=== PATIENT | male | born 1970 | race Caucasian/White ===

== ENCOUNTER 2023-02-22 16:42 | Observation (INO) | payer SELFPAY ==
[2023-02-22 16:54] VITALS: BP 167/117; PULSE 70; RESP 19; TEMP 36.9; O2SAT 98; BMI 28.7
--- NOTE | 2023-02-22 16:57 | ED_ITS ---
Documented by User: Chris Mcneil DO 02/22/23 17:59 HPI - General Adult General: Chief complaint: Neuro Symptoms/Deficit Stated complaint: dizziness,communication issues Time Seen by Provider: 02/22/23 16:55 Source: patient Mode of arrival: ambulatory History of Present Illness: 52-year-old male who states he first began his symptoms last week 5 days ago. He was at work and he felt like he was having difficulty walking states he nearly passed out and he then got in his car after he seemed to recover and drove home his had to help him out of the car he states he did not have any difficulty driving he drove about 3 miles. He passed out again at home and was very tired for period of time he never came in he noticed difficulty with speech and some drooping in his face and difficulty with walking. This persisted up until today he states that around 2:00's afternoon he may have began to having more difficulty finding words than he did previously. He also felt like his walking had worsened some more. No chest pain. Onset (ago): day(s) (5) Location: head Severity: mild and moderate Pain Consistency: constant Relieving factors: none Exacerbating factors: none Associated symptoms: Reports weakness; Deny chest pain, confusion, cough, diaphoresis, decreased appetite, dyspnea, fevers/chills, headache(s), malaise, nausea, rash, palpitations, seizures, short of breath, syncope or vomiting Review of Systems Const: Denies: fever(s), chills, malaise or diaphoresis Card: Denies: chest pain, palpitations or syncope Resp: Denies: dyspnea GI: Denies: abdominal pain, nausea or vomiting : Denies: dysuria, urinary frequency or urinary urgency Musc: Denies: neck pain or back pain Skin/Breast: Denies: rash Neuro: Denies: headache(s) or confusion Physical Exam Const: GENERAL APPEARANCE: cooperative and comfortable ORIENTATION/CONSCIOUSNESS: Yes awake, Yes oriented to person, Yes oriented to place and Yes oriented to time HENMT: COMMON NORMALS: normocephalic, atraumatic and hearing grossly normal bilaterally HEAD & SCALP: normocephalic and atraumatic Resp: COMMON NORMALS: normal respiratory effort, No retractions, No use of accessory muscles and clear to auscultation bilaterally AUSCULTATION: clear to auscultation bilaterally Cardio: COMMON NORMALS: regular rate, regular rhythm and No murmurs present (Cardio) RATE: regular rate RHYTHM: regular rhythm GI: COMMON NORMALS: Soft to palpation and No hepatosplenomegaly present AUSCULTATION: Yes normoactive bowel sounds PALPATION: Yes Soft to palpation, No Tenderness to palpation present (GI), No Guarding due to palpation present (GI) and Yes No hepatosplenomegaly present Extremity: COMMON NORMALS: normal to inspection, capillary refill normal, no clubbing, cyanosis or edema, no calf tenderness and no pedal edema Neuro: SENSORIUM/ORIENTATION: Yes oriented to person, Yes oriented to place and Yes oriented to time OTHER: NIH score done as mixed findings. Patient has loss of sensation in his right lower leg but his left arm and left side of his face is ataxia both in the left leg and the left arm he does have some apparent word finding difficulties and presented with several common every day objects. He also has a little bit of slurring of speech. Skin: COMMON NORMALS: no rashes or lesions noted GENERAL SKIN EXAM: no rashes or lesions noted Course Vital Signs: Vital signs: Vital Signs Temperature 98.5 F 02/22/23 16:54 Pulse Rate 72 02/22/23 17:30 Respiratory Rate 16 02/22/23 17:30 Blood Pressure 172/118 02/22/23 17:30 Pulse Oximetry 97 02/22/23 17:30 Oxygen Delivery Me thod Room Air 02/22/23 17:30 MDM - General Adult Medical Decision Making IN taking his history patient had a stroke score of 3-4 that is now gone up by 1-2 points in the last 3-1/[address] Angela he recommends CTA head and neck and will come to see the patient. He did not feel that the patient was a tPA candidate at this time. Care signed out to Dr. Marques at change of shift. See final notes for diagnosis and disposition. Medical Records I reviewed the patient's medical records. Lab Data I reviewed the patient's lab results. 02/22/23 17:32 02/22/23 17:[address] 02/22/23 16:58 IMPRESSION: No acute intracranial abnormality. Head/Neck CTA 02/22/23 17:33 IMPRESSION: No large vessel stenosis or occlusion. IMPRESSION: No stenosis or occlusion. REFERENCES: NASCET CRITERIA. The degree of stenosis in the cervical segment of the internal carotid artery is based on NASCET criteria. Normal is no stenosis. Mild is less than 50% stenosis. Moderate is 50-69% stenosis. Severe is 70% to 99% stenosis. Total occlusion is no detectable patent lumen. Laboratory Results WBC 10.26 10^3/uL (3.29-11.43) 02/22/23 17:32 RBC 5.53 10^6/uL (3.85-5.65) 02/22/23 17:32 Hgb 15.70 g/dL (11.27-16.99) 02/22/23 17:32 Hct 50.0 % (37-53) 02/22/23 17:32 MCV 90.4 fl (82-101) 02/22/23 17:32 MCH 28.4 pg (27-33) 02/22/23 17:32 MCHC 31.4 g/dL (30-55) 02/22/23 17:32 RDW 13.0 % (12.1-15.1) 02/22/23 17:32 Plt Count 427 10^3/cmm (157-399) H 02/22/23 17:32 MPV 10.3 fL (7.4-10.4) 02/22/23 17:32 Neut % (Auto) 60.2 % 02/22/23 17:32 Lymph % (Auto) 27.9 % 02/22/23 17:32 Cocke % (Auto) 7.9 % 02/22/23 17:32 Eos % (Auto) 3.0 % 02/22/23 17:32 Baso % (Auto) 0.6 % 02/22/23 17:32 Neut # (Auto) 6.18 10^3/uL (1.8-7.7) 02/22/23 17:32 Lymph # (Auto) 2.9 10^3/uL (0.8-4.8) 02/22/23 17:32 Cocke # (Auto) 0.8 10^3/uL (0.2-0.9) 02/22/23 17:32 Eos # (Auto) 0.3 10^3/uL (0.0-0.8) 02/22/23 17:32 Baso # (Auto) 0.1 10^3/uL (0.0-0.1) 02/22/23 17:32 Nucleated RBC % (auto) 0 % 02/22/23 17:32 Nucleated RBCs # 0.0 /100WBC 02/22/23 17:32 Sodium 140 mmol/L (136-145) 02/22/23 17:32 Potassium 5.1 mmol/L (3.5-5.1) 02/22/23 17:32 Chloride 102 mmol/L (98-107) 02/22/23 17:32 Carbon Dioxide 29 mmol/L (22-29) 02/22/23 17:32 Anion Gap 14.1 (5-19) 02/22/23 17:32 BUN 10 mg/dL (6-20) 02/22/23 17:32 Creatinine 1.0 mg/dL (0.7-1.2) 02/22/23 17:32 GFR Calculation 78.2 mL/min (90-130) L 02/22/23 17:32 Glucose 80 mg/dL (65-115) 02/22/23 17:32 POC Glucose 74 mg/dL (70-110) 02/22/23 17:40 Calculated Osmolality 288 mOsm/kg (285-295) 02/22/23 17:32 Calcium 9.2 mg/dL (8.5-10.5) 02/22/23 17:32 Total Bilirubin 0.3 mg/dL (0.15-1.2) 02/22/23 17:32 AST 19 U/L (0-40) 02/22/23 17:32 ALT 20 U/L (0-41) 02/22/23 17:32 Alkaline Phosphatase 75 U/L (40-130) 02/22/23 17:32 Total Protein 7.5 g/dL (6.6-8.7) 02/22/23 17:32 Albumin 4.3 g/dL (3.5-5.2) 02/22/23 17:32 Globulin 3.2 g/dL (1.3-4.6) 02/22/23 17:32 Urine Color Yellow (Yellow) 02/22/23 19:04 Urine Appearance Clear (CLEAR) 02/22/23 19:04 Urine pH 7 (5-7) 02/22/23 19:04 Ur Specific Allen 1.010 (1.005-1.030) 02/22/23 19:04 Urine Protein Neg (Negative) 02/22/23 19:04 Urine Glucose (UA) Norm (Normal) 02/22/23 19:04 Urine Ketones Negative (Negative) 02/22/23 19:04 Urine Blood Neg (Negative) 02/22/23 19:04 Urine Nitrate Negative (Negative) 02/22/23 19:04 Urine Bilirubin Neg (Negative) 02/22/23 19:04 Urine Urobilinogen Norm mg/dL (Negative) 02/22/23 19:04 Ur Leukocyte Esterase Negative (Negative) 02/22/23 19:04 XR interpretation done by ED provider, pending radiology final review Discharge Plan Discharge Patient Disposition: Placed in Observation Clinical Impression: TIA (transient ischemic attack), Ataxic gait, Hypertension Condition: Stable Referrals: Eduin Villa MD [Primary Care Provider] - Coding Level of Care Code ED Coordinate Measuring Machine Technician for Chg Fwd NIH stroke score NIHSS Level Of Consciousness - 1a: 0 Level Of Consciousness Questions - 1b: Both Correct Level Of Consciousness Commands - 1c: Both Correct Best Gaze - 2: Normal Visual Martínez - 3: No Visual Loss Facial Palsy - 4: Normal Motor Arm Right - 5: No Drift Motor Arm Left - 5: No Drift Motor Leg Right - 6: No Drift Motor Leg Left - 6: No Drift Limb Ataxia - 7: Present In Two Limbs (Left arm left leg) Sensory - 8: Mild To Moderate Loss (Left side of the face, left arm right lower leg) Best Language - 9: Mild/Moderate Aphasia Dysarthia - 10: Mild/Moderate Dysarthia Extinction And Inattention - 11: 0 Score Total Score: 5 Documented by User: Yahir Marques DO 02/22/23 20:09 HPI - General Adult General: Chief complaint: Neuro Symptoms/Deficit Stated complaint: dizziness,communication issues Time Seen by Provider: 02/22/23 16:55 Course Vital Signs: Vital signs: Vital Signs Temperature 98.5 F 02/22/23 16:54 Pulse Rate 72 02/22/23 17:30 Respiratory Rate 16 02/22/23 17:30 Blood Pressure 172/118 02/22/23 17:30 Pulse Oximetry 97 02/22/23 17:30 Oxygen Delivery Me thod Room Air 02/22/23 17:30 MDM - General Adult Medical Decision Making IN taking his history patient had a stroke score of 3-4 that is now gone up by 1-2 points in the last 3-1/[address] Angela he recommends CTA head and neck and will come to see the patient. He did not feel that the patient was a tPA candidate at this time. Care signed out to Dr. Marques at change of shift. See final notes for diagnosis and disposition. Dr. Angela, and evaluated the patient and put a note in with his recommendations. CT angiogram was obtained which was negative. Dr. Rios was consulted who agreed for observation for further evaluation and treatment. Differential Diagnosis TIA, PA-C, ataxia, hypertension Lab Data 02/22/23 17:32 02/22/23 17:[address] 02/22/23 16:58 IMPRESSION: No acute intracranial abnormality. Head/Neck CTA 02/22/23 17:33 IMPRESSION: No large vessel stenosis or occlusion. IMPRESSION: No stenosis or occlusion. REFERENCES: NASCET CRITERIA. The degree of stenosis in the cervical segment of the internal carotid artery is based on NASCET criteria. Normal is no stenosis. Mild is less than 50% stenosis. Moderate is 50-69% stenosis. Severe is 70% to 99% stenosis. Total occlusion is no detectable patent lumen. Laboratory Results WBC 10.26 10^3/uL (3.29-11.43) 02/22/23 17:32 RBC 5.53 10^6/uL (3.85-5.65) 02/22/23 17:32 Hgb 15.70 g/dL (11.27-16.99) 02/22/23 17:32 Hct 50.0 % (37-53) 02/22/23 17:32 MCV 90.4 fl (82-101) 02/22/23 17:32 MCH 28.4 pg (27-33) 02/22/23 17:32 MCHC 31.4 g/dL (30-55) 02/22/23 17:32 RDW 13.0 % (12.1-15.1) 02/22/23 17:32 Plt Count 427 10^3/cmm (157-399) H 02/22/23 17:32 MPV 10.3 fL (7.4-10.4) 02/22/23 17:32 Neut % (Auto) 60.2 % 02/22/23 17:32 Lymph % (Auto) 27.9 % 02/22/23 17:32 Cocke % (Auto) 7.9 % 02/22/23 17:32 Eos % (Auto) 3.0 % 02/22/23 17:32 Baso % (Auto) 0.6 % 02/22/23 17:32 Neut # (Auto) 6.18 10^3/uL (1.8-7.7) 02/22/23 17:32 Lymph # (Auto) 2.9 10^3/uL (0.8-4.8) 02/22/23 17:32 Cocke # (Auto) 0.8 10^3/uL (0.2-0.9) 02/22/23 17:32 Eos # (Auto) 0.3 10^3/uL (0.0-0.8) 02/22/23 17:32 Baso # (Auto) 0.1 10^3/uL (0.0-0.1) 02/22/23 17:32 Nucleated RBC % (auto) 0 % 02/22/23 17:32 Nucleated RBCs # 0.0 /100WBC 02/22/23 17:32 Sodium 140 mmol/L (136-145) 02/22/23 17:32 Potassium 5.1 mmol/L (3.5-5.1) 02/22/23 17:32 Chloride 102 mmol/L (98-107) 02/22/23 17:32 Carbon Dioxide 29 mmol/L (22-29) 02/22/23 17:32 Anion Gap 14.1 (5-19) 02/22/23 17:32 BUN 10 mg/dL (6-20) 02/22/23 17:32 Creatinine 1.0 mg/dL (0.7-1.2) 02/22/23 17:32 GFR Calculation 78.2 mL/min (90-130) L 02/22/23 17:32 Glucose 80 mg/dL (65-115) 02/22/23 17:32 POC Glucose 74 mg/dL (70-110) 02/22/23 17:40 Calculated Osmolality 288 mOsm/kg (285-295) 02/22/23 17:32 Calcium 9.2 mg/dL (8.5-10.5) 02/22/23 17:32 Total Bilirubin 0.3 mg/dL (0.15-1.2) 02/22/23 17:32 AST 19 U/L (0-40) 02/22/23 17:32 ALT 20 U/L (0-41) 02/22/23 17:32 Alkaline Phosphatase 75 U/L (40-130) 02/22/23 17:32 Total Protein 7.5 g/dL (6.6-8.7) 02/22/23 17:32 Albumin 4.3 g/dL (3.5-5.2) 02/22/23 17:32 Globulin 3.2 g/dL (1.3-4.6) 02/22/23 17:32 Urine Color Yellow (Yellow) 02/22/23 19:04 Urine Appearance Clear (CLEAR) 02/22/23 19:04 Urine pH 7 (5-7) 02/22/23 19:04 Ur Specific Allen 1.010 (1.005-1.030) 02/22/23 19:04 Urine Protein Neg (Negative) 02/22/23 19:04 Urine Glucose (UA) Norm (Normal) 02/22/23 19:04 Urine Ketones Negative (Negative) 02/22/23 19:04 Urine Blood Neg (Negative) 02/22/23 19:04 Urine Nitrate Negative (Negative) 02/22/23 19:04 Urine Bilirubin Neg (Negative) 02/22/23 19:04 Urine Urobilinogen Norm mg/dL (Negative) 02/22/23 19:04 Ur Leukocyte Esterase Negative (Negative) 02/22/23 19:04 Discharge Plan Discharge Patient Disposition: Placed in Observation Clinical Impression: TIA (transient ischemic attack), Ataxic gait, Hypertension Condition: Stable Referrals: Eduin Villa MD [Primary Care Provider] - Coding Level of Care Code ED Coordinate Measuring Machine Technician for Zachary Burden NIH stroke score Score Total Score: 5
--- NOTE | 2023-02-22 16:58 | CTR_ITS ---
PROCEDURE INFORMATION: Exam: CT Head Without Contrast Exam date and time: 02/22/2023 5:03 PM Age: 52 years old Clinical indication: Dizziness and other: Weakness, confusion; Additional info: Weakness/dizziness TECHNIQUE: Imaging protocol: Computed tomography of the head without contrast. Radiation optimization: All CT scans at this facility use at least one of these dose optimization techniques: automated exposure control; mA and/or kV adjustment per patient size (includes targeted exams where dose is matched to clinical indication); or iterative reconstruction. REPORTING DATA: Count of CT and Cardiac NM exams in prior 12 months: This patient has received 0 known CTs and 0 known cardiac nuclear medicine studies in the 12 months prior to the current study. COMPARISON: No relevant prior studies available. RADIATION DOSE METRICS: Total DLP (mGy-cm): 1105 FINDINGS: Brain: Normal. No hemorrhage. Unremarkable white matter. No mass effect. Cerebral ventricles: No ventriculomegaly. Paranasal sinuses: Visualized sinuses are unremarkable. No fluid levels. Mastoid air cells: Visualized mastoid air cells are well aerated. Bones/joints: Unremarkable. No acute fracture. Soft tissues: Unremarkable. CT/CT head wo con* [id number] IMPRESSION: No acute intracranial abnormality.
[2023-02-22 17:26] LABS: Glucose Point of Care 74 mg/dL (70-110)
[2023-02-22 17:30] VITALS: BP 172/118; PULSE 72; RESP 16; O2SAT 97
--- NOTE | 2023-02-22 17:31 | ECG_ITS ---
[facility] Test Date: 2023-02-22 Pat Name: Slim Andino Department: Room: Gender: Male Dip Dyer: : 1970 Requested By: Chris Holly Order Number: [id number] Rodrigo MD: Jeff Harrison M.D. Measurements Intervals [place] Rate: 65 P: 0 AR: 0 QRS: 43 QRSD: 92 T: 65 QT: 396 QTc: 413 Interpretive Statements SUPRAVENTRICULAR RHYTHM No previous ECG available for comparison Electronically Signed On 02-22-2023 23:08:42 CDT by Jeff Harrison M.D. [email or web address]
--- NOTE | 2023-02-22 17:33 | CTR_ITS ---
PROCEDURE INFORMATION: Exam: CTA Head With Contrast, Arteriography Exam date and time: 02/22/2023 6:28 PM Age: 52 years old Clinical indication: Dizziness and giddiness and weakness; Additional info: CVA TECHNIQUE: Imaging protocol: Computed tomographic angiography of the head with contrast. Exam focused on the arteries. 3D rendering (Not supervised by radiologist): MIP and/or 3D reconstructed images were created by the technologist. Radiation optimization: All CT scans at this facility use at least one of these dose optimization techniques: automated exposure control; mA and/or kV adjustment per patient size (includes targeted exams where dose is matched to clinical indication); or iterative reconstruction. Contrast material: OMNI 350; Contrast volume: 100 ml; Contrast route: INTRAVENOUS (IV); REPORTING DATA: Count of CT and Cardiac NM exams in prior 12 months: This patient has received 0 known CTs and 0 known cardiac nuclear medicine studies in the 12 months prior to the current study. COMPARISON: CT head wo con* [id number] 02/22/2023 5:03 PM RADIATION DOSE METRICS: Total DLP (mGy-cm): 540 FINDINGS: ANTERIOR CIRCULATION: Right internal carotid artery: Intracranial segment is patent with no significant stenosis. No aneurysm. Right middle cerebral artery: No occlusion or significant stenosis. No aneurysm. Right anterior cerebral artery: No occlusion or significant stenosis. No aneurysm. Left internal carotid artery: Intracranial segment is patent with no significant stenosis. No aneurysm. Left middle cerebral artery: No occlusion or significant stenosis. No aneurysm. Left anterior cerebral artery: No occlusion or significant stenosis. No aneurysm. POSTERIOR CIRCULATION: Right vertebral artery: No occlusion or significant stenosis. No aneurysm. Left vertebral artery: No occlusion or significant stenosis. No aneurysm. Basilar artery: No occlusion or significant stenosis. No aneurysm. Right posterior cerebral artery: No occlusion or significant stenosis. No aneurysm. Left posterior cerebral artery: No occlusion or significant stenosis. No aneurysm. Brain: No definite mass, mass effect, or midline shift. Cerebral ventricles: No ventriculomegaly. Bones/joints: Unremarkable. No acute fracture. Soft tissues: Unremarkable. PROCEDURE INFORMATION: Exam: CTA Neck With Contrast Exam date and time: 02/22/2023 6:28 PM Age: 52 years old Clinical indication: Dizziness and giddiness and weakness; Additional info: CVA TECHNIQUE: Imaging protocol: Computed tomographic angiography of the neck with contrast. 3D rendering (Not supervised by radiologist): MIP and/or 3D reconstructed images were created by the technologist. Radiation optimization: All CT scans at this facility use at least one of these dose optimization techniques: automated exposure control; mA and/or kV adjustment per patient size (includes targeted exams where dose is matched to clinical indication); or iterative reconstruction. Contrast material: OMNI 350; Contrast volume: 100 ml; Contrast route: INTRAVENOUS (IV); REPORTING DATA: Count of CT and Cardiac NM exams in prior 12 months: This patient has received 0 known CTs and 0 known cardiac nuclear medicine studies in the 12 months prior to the current study. COMPARISON: CT head wo con* [id number] 02/22/2023 5:03 PM RADIATION DOSE METRICS: Total DLP (mGy-cm): 540 FINDINGS: Right common carotid artery: No stenosis. No dissection or occlusion. Right internal carotid artery: No stenosis of the extracranial segment. No dissection or occlusion. Right external carotid artery: No occlusion or stenosis of the origin. Left common carotid artery: No stenosis. No dissection or occlusion. Left internal carotid artery: No stenosis of the extracranial segment. No dissection or occlusion. Left external carotid artery: No occlusion or stenosis of the origin. Right vertebral artery: No stenosis. No dissection or occlusion. Left vertebral artery: No stenosis. No dissection or occlusion. Soft tissues: Normal. No significant soft tissue swelling. Bones/joints: No acute fracture. CT/CT angio headneck* [id number] IMPRESSION: No large vessel stenosis or occlusion. IMPRESSION: No stenosis or occlusion. REFERENCES: NASCET CRITERIA. The degree of stenosis in the cervical segment of the internal carotid artery is based on NASCET criteria. Normal is no stenosis. Mild is less than 50% stenosis. Moderate is 50-69% stenosis. Severe is 70% to 99% stenosis. Total occlusion is no detectable patent lumen.
[2023-02-22 17:42] LABS: Basophils # 0.1 10^3/uL (0.0-0.1); Basophils % 0.6 %; Eosinophils # 0.3 10^3/uL (0.0-0.8); Lymphocytes # 2.9 10^3/uL (0.8-4.8); Lymphocytes % 27.9 %; Mean Corpuscular HGB Conc 31.4 g/dL (30-55); Mean Corpuscular Hemoglobin 28.4 pg (27-33); Mean Corpuscular Volume 90.4 fl (82-101); Mean Platelet Volume 10.3 fL (7.4-10.4); Monocytes # 0.8 10^3/uL (0.2-0.9); Monocytes % 7.9 %; Neutrophils # 6.18 10^3/uL (1.8-7.7); Neutrophils % 60.2 %; Nucleated Red Blood Cells % 0 %; Platelet Count 427 10^3/cmm (157-399); Red Blood Count 5.53 10^6/uL (3.85-5.65); White Blood Count 10.26 10^3/uL (3.29-11.43)
[2023-02-22] MEDS: labetalol 5 mg/mL SDV 20mL 10 MG IVP (17:42)
[2023-02-22 17:50] LABS: Glucose Point of Care 74 mg/dL (70-110)
[2023-02-22 18:15] LABS: Alanine Aminotransferase 20 U/L (0-41); Albumin Level 4.3 g/dL (3.5-5.2); Alkaline Phosphatase 75 U/L (40-130); Aspartate Amino Transferase 19 U/L (0-40); Blood Urea Nitrogen 10 mg/dL (6-20); Calcium 9.2 mg/dL (8.5-10.5); Carbon Dioxide 29 mmol/L (22-29); Chloride 102 mmol/L (98-107); Globulin 3.2 g/dL (1.3-4.6); Glomerular Filtration Rate 78.2 mL/min (90-130); Glucose 80 mg/dL (65-115); Osmolality Calculated 288 mOsm/kg (285-295); Sodium 140 mmol/L (136-145); Total Bilirubin 0.3 mg/dL (0.15-1.2); Total Protein 7.5 g/dL (6.6-8.7)
--- NOTE | 2023-02-22 18:30 | PM.CONSULT ---
Providers/Reason For Consult Consulting Physician/Specialty*: Kane Angela MD neurology and epilepsy Reason for Consult*: Syncope and episodes of gait ataxia and left-sided numbness involving his face and arm Primary Care Provider: Wayne Villa History of Present Illness History of Present Illness Slim Andino is a 52 year old male with a history of paroxysmal atrial contractions the patient denied a history of hypertension but presented to the emergency room with blood pressure 172/118. According to the patient, 6 days prior to admission he was at work, last on February 17, 2023. 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 He stated that he was walking and suddenly a odd sensation came over him as though he might pass out. He stated that he was concerned it might be his heart so he sat down and initially he was not sweating but then he stated he was sweating profusely. Patient stated that he turned on a fan for about 2 minutes to cool off and then he walked to the office and experienced loss of consciousness for an undetermined period of time. Patient stated that he was alone and there were no witnesses. He stated that after regaining consciousness he was severely weak and ataxic but was able to drive himself home. When he arrived home he called to his and she assisted him from the vehicle into the house and the patient stated that he was very sleepy and tired and went to sleep for 5 to 6 hours. The next day the patient stated that he woke up and he still was not right and was off balance with continued difficulty processing. Then around 1 PM on 02/22/2023 he began having more trouble with balance associated with some word finding difficulty and sensation that he might pass out. As a result he presented to the [facility] emergency room and was transferred to ER bed 16. NIH score performed by ER physician was reported to be a very from a 3 to a 5. Noncontrast head CT and lab were obtained. Noncontrast head CT was reported to be negative. Metabolic lab results were pending at the time of this dictation. Upon neurological assessment patient is NIH score = 1 based upon patient complaining of left facial numbness in a V1 through V3 distribution and left arm numbness. Other was unrevealing. Patient speech was clear and no focal weakness or extinction on double sensory stimulation. Past medical history: Paroxysmal atrial contractions Nicotine dependence Drug allergies: None Current medications: None Habits: The patient smokes 1 pack/day. 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 of Systems General: Reports: 10 or more systems reviewed and unremarkable except in HPI and below Medications/Allergies Allergies Allergy/AdvReac Type Severity Reaction Status Date / Time No Known Allergies Allergy Verified 02/22/23 17:01 Vitals/I&O/Wt Last Vital Signs Temp 98.5 F 02/22/23 16:54 Pulse 72 02/22/23 17:30 Resp 16 02/22/23 17:30 BP 172/118 02/22/23 17:30 Pulse Ox 97 02/22/23 17:30 O2 Del Method Room Air 02/22/23 17:30 Weight last 48 hrs Weight 200 lb 6.4 oz Physical Exam Narrative: NIH score =1 secondary to complaints of numbness over the left side of his face in a V1 to V3 distribution and left upper extremity. Blood pressure 172/118 heart rate 65 O2 saturations 95% on room air The patient is alert and in no apparent distress. Head atraumatic. The patient did have a red area over the left forehead/hairline which she reports is chronic. Neck supple. Cranial nerves II through XII intact. Pupils 4 mm. Pupils equal round and reactive to light and accommodation. Extraocular movements intact. Visual carlos full via confrontation. There were no nystagmus. Motor testing 5/5 bilaterally. There was no drift. Deep tendon reflexes 2+ bilaterally. Plantar responses flexor bilaterally. There was no clonus. Sensory examination was intact to gross modalities. Patient reported decrease sensation over the left face in a V1 to V3 distribution and left upper extremity. There was no extinction on double sensory stimulation. Throat clear. Lungs clear. Heart regular rhythm and rate. Extremities were negative for clubbing cyanosis or edema. Pulses 2-3+ in the upper and lower extremities. Data 02/22/23 17:32 02/22/23 17:32 A&P Assessment and plan (1) Syncope: Impression: 1. Syncopal episode while ambulating on 02/17/2023 preceded by the patient becoming very hot and sweaty 2. Ataxia, processing difficulty and body numbness since 02/17/2023 exacerbated on 02/22/2023 3. History of paroxysmal atrial contractions 4. Malignant elevation of blood pressure (172/118 in the emergency department room #16) 5. Cigarette use (nicotine dependence) Plan: 1. Recommend obtaining CT angiogram of the head and neck to assess for carotid or vertebral artery stenosis 2. Hypercoagulable lab to assess for a hypercoagulable state 3. Recommend obtaining 2D echocardiogram to rule out embolic source for the patient's symptoms 4. Recommend cardiac telemetry monitoring during his hospitalization to assess for cardiac arrhythmias 5. Agree with current work-up and treatment plan 6. Start aspirin 325 mg p.o. every morning with food first dose now 7. Recommend starting lipid-lowering agent such as Lipitor at 40 to 80 mg p.o. daily 8. Note: Since the patient's symptoms began on 02/17/2023 and has continued but exacerbated on 02/22/2023, and the patient's NIH score = 1, the patient was not a candidate for tPA or other thrombolytics and no tPA was administered 9. Address the patient's elevated blood pressure/hypertension 10. Recommend cardiac evaluation since patient has history of paroxysmal atrial contractions and has not been evaluated by teacher lip reading in years. (2) TIA (transient ischemic attack): (3) Ataxic gait: Consult Attestations Medical Necessity Statement: Patient evaluated by neurology for reported syncopal episode on 02/17/2023 and continued near syncope and ataxia since 02/17/2023 and numbness and speech difficulty. Coding Level of Care Code 36635 Diagnoses Syncope R55 TIA (transient ischemic attack) G45.9 Ataxic gait R26.0
[2023-02-22] MEDS: iohexol 350 mg/mL 500 mL Btl (per mL) IV (18:39)
[2023-02-22 18:40] LABS: Anion Gap 14.1 (5-19); Potassium 5.1 mmol/L (3.5-5.1)
[2023-02-22] MEDS: hyDRALAzine 20 mg/mL INJ 1 mL 10 MG IVP (19:05)
[2023-02-22 19:13] LABS: Add Urine Microscopic? NO; Charge for UA Resulting for Rev
[2023-02-22 19:34] LABS: Bilirubin Urine Neg (Negative); Blood Urine Neg (Negative); Glucose Urine UA Norm (Normal); Ketones Urine Negative (Negative); Leukocyte Esterase Urine Negative (Negative); Nitrate Urine Negative (Negative); Protein Urine Neg (Negative); Urine Appearance Clear (CLEAR); Urine Color Yellow (Yellow); Urobilinogen Urine Norm (Negative); pH Urine 7 (5-7)
[2023-02-22 20:49] VITALS: BP 152/94; PULSE 90; RESP 16; O2SAT 95
[2023-02-22 21:05] VITALS: BP 152/94; PULSE 90; RESP 16; TEMP 36.9; O2SAT 95
[2023-02-22 21:22] VITALS: BP 173/79; PULSE 86; RESP 18; TEMP 36.4; O2SAT 97
[2023-02-22 22:19] VITALS: BP 173/79; PULSE 86; RESP 18; TEMP 36.4; O2SAT 97
--- NOTE | 2023-02-22 22:23 | PM.HP ---
Providers/Chief Complaint Admitting Physician: Malissa Rios MD Primary Care Provider: Wayne Villa Chief Complaint: dizziness History of Present Illness Slim Andino is a 52 year old male with no significant past medical history presented with complaint of feeling abnormal on the left side of his body. He reported feeling not normal 1 week ago when he was at work and suddenly had to sit, also had a dragging feel on the left side of his body. He further added that he has not been feeling his usual for last 1 week. Also had difficulty finding words to speak. He denies any history of headache dizziness chest pain shortness of breath sick contacts urinary or bowel complaints. Last PCP visit was 2 years ago. He was doing fine until 1 week ago. In ER he was found to have a systolic blood pressure in 150s. Review of Systems Narrative: As per HPI Medications/Allergies Allergies Allergy/AdvReac Type Severity Reaction Status Date / Time No Known Allergies Allergy Verified 02/22/23 17:01 Vitals/I&O/Wt Last Vital Signs Temp 97.5 F L 02/22/23 21:22 Pulse 86 02/22/23 21:22 Resp 18 02/22/23 21:22 BP 173/79 02/22/23 21:22 Pulse Ox 97 02/22/23 21:22 O2 Del Method Room Air 02/22/23 17:30 Weight last 48 hrs Weight 90.9 kg Physical Exam Narrative: He is alert awake oriented x3, normal speech Chest clear to auscultation bilaterally Cardiovascular normal heart sounds Abdomen NAD Extremities no edema noted Neurological normal speech but sometimes difficult articulation, no motor or sensory deficits seen. Left nasolabial fold mildly prominent Data 02/22/23 17:32 02/22/23 17:32 CT Head: Radiologist's impression: No acute findings Other CT: Radiologist's impression: CTA head and neck No large vessel stenosis present A&P Assessment and plan (1) TIA (transient ischemic attack): (2) Hypertension: Qualifiers: Hypertension type: unspecified Qualified Code(s): I10 - Essential (primary) hypertension Plan 52-year-old male with no significant medical history active smoker presented with complaint of feeling abnormal on the left side of his body and difficulty to articulate speech since 1 week likely secondary to TIA. Neurology consult appreciated. He is not a candidate for tPA at this time. Will continue aspirin 325 mg daily Add atorvastatin 40 mg daily, check lipid profile in a.m. Check repeat EKG and 2D echo. Monitor blood pressure for now. Target BP is 140/90 PT eval in a.m. IV Pepcid 20 mg every 12 hours for stress ulcer prophylaxis Subcutaneous Lovenox 30 mg daily for DVT prophylaxis He is full code for now Attestations Medical Necessity Statement*: He is here for observation for 24 hours for possible TIA and further cardiac work-up to rule out thrombotic stroke Time Spent in Patient Care: 30 minutes Coding Level of Care Code Acute Code for Chg Fwd Diagnoses TIA (transient ischemic attack) G45.9 Hypertension I10 Hypertension type: unspecified Time Spent (min) 30
[2023-02-22] MEDS: famotidine 20 mg/2 mL INJ IVP (23:13)
[2023-02-22] MEDS: enoxaparin 30 mg/0.3 mL Syringe SUBCUT (23:24)
[2023-02-22] MEDS: sodium chloride 0.9% 1,000 ML 75 ML IV (23:24)
[2023-02-23] VITALS: BP 145/79; PULSE 72; RESP 18; TEMP 36.8; O2SAT 97
[2023-02-23 01:53] LABS: Adenovirus Not Detected (NOT DETECT); Chlamydia Pneumoniae Not Detected (NOT DETECT); Coronavirus 229E,HKU1,NL63,OC4 Not Detected (NOT DETECT); Human Metapneumovirus Not Detected (NOT DETECT); Human Rhinovirus/Enterovirus Not Detected (NOT DETECT); Influenza A Not Detected (NOT DETECT); Influenza A H1 Not Detected (NOT DETECT); Influenza A H1-2009 Not Detected (NOT DETECT); Influenza A H3 Not Detected (NOT DETECT); Influenza B Not Detected (NOT DETECT); Mycoplasma Pneumoniae Not Detected (NOT DETECT); Parainfluenza Virus Type 1 Not Detected (NOT DETECT); Parainfluenza Virus Type 2 Not Detected (NOT DETECT); Parainfluenza Virus Type 3 Not Detected (NOT DETECT); Parainfluenza Virus Type 4 Not Detected (NOT DETECT); Respiratory Syncytial Virus A Not Detected (NOT DETECT); Respiratory Syncytial Virus B Not Detected (NOT DETECT); SARS-COV-2 Not Detected (NOT DETECT)
[2023-02-23 04:52] VITALS: BP 140/80; PULSE 75; RESP 18; TEMP 37; O2SAT 97
--- NOTE | 2023-02-23 04:52 | PC.NURSE ---
pt went to bathroom and flushed before i could get in there to chart it
[2023-02-23 04:59] LABS: Basophils # 0.1 10^3/uL (0.0-0.1); Basophils % 0.5 %; Eosinophils # 0.4 10^3/uL (0.0-0.8); Eosinophils % 3.7 %; Lymphocytes # 3.6 10^3/uL (0.8-4.8); Lymphocytes % 32.6 %; Mean Corpuscular HGB Conc 32.1 g/dL (30-55); Mean Corpuscular Hemoglobin 29.1 pg (27-33); Mean Corpuscular Volume 90.7 fl (82-101); Mean Platelet Volume 10.3 fL (7.4-10.4); Monocytes # 0.8 10^3/uL (0.2-0.9); Monocytes % 7.3 %; Neutrophils # 6.07 10^3/uL (1.8-7.7); Neutrophils % 55.5 %; Nucleated Red Blood Cells % 0 %; Platelet Count 395 10^3/cmm (157-399); Red Blood Count 4.74 10^6/uL (3.85-5.65); Red Cell Distribution Width 13.1 % (12.1-15.1); White Blood Count 10.93 10^3/uL (3.29-11.43)
[2023-02-23 05:17] LABS: Chol HDL Ratio 6.41 mg/dL (1.0-5.00); Cholesterol 205 mg/dL (0-200); HDL Cholesterol 32 mg/dL (60-100); LDL Cholesterol Calculated 120 mg/dL (50-129); LDL HDL Ratio 3.75 RATIO (0.00-3.22); Triglycerides 264 mg/dL (0-150)
[2023-02-23 05:24] LABS: Alanine Aminotransferase 18 U/L (0-41); Albumin Level 3.7 g/dL (3.5-5.2); Alkaline Phosphatase 66 U/L (40-130); Anion Gap 14.5 (5-19); Aspartate Amino Transferase 16 U/L (0-40); Blood Urea Nitrogen 14 mg/dL (6-20); Calcium 8.4 mg/dL (8.5-10.5); Carbon Dioxide 25 mmol/L (22-29); Chloride 107 mmol/L (98-107); Globulin 2.8 g/dL (1.3-4.6); Glucose 93 mg/dL (65-115); Magnesium 2.5 mg/dL (1.7-2.3); Osmolality Calculated 294 mOsm/kg (285-295); Phosphorus 3.9 mg/dL (2.5-4.5); Potassium 4.5 mmol/L (3.5-5.1); Sodium 142 mmol/L (136-145); Total Bilirubin 0.2 mg/dL (0.15-1.2); Total Protein 6.5 g/dL (6.6-8.7)
--- NOTE | 2023-02-23 07:10 | USCV_ITS ---
Sina Slim Age: 52 Gender: M : 1970 Exam Date: 02/23/2023 09:18 Ordering Phys: Ronda Jackson MD Technologist: Exam Location: [facility] [place] Indication: chest pain BP: 140 / 90 HR: 68 Rhythm: Sinus Technical Quality: Adequate MEASUREMENTS (Male / Female) Normal Values 2D ECHO LV Diastolic Diameter PLAX 4.1 cm 4.2 - 5.9 / 3.9 - 5.3 cm LV Systolic Diameter PLAX 2.7 cm IVS Diastolic Thickness 1.2 cm 0.6 - 1.0 / 0.6 - 0.9 cm IVS Systolic Thickness 1.5 cm LVPW Diastolic Thickness 1.1 cm 0.6 - 1.0 / 0.6 - 0.9 cm LVPW Systolic Thickness 1.7 cm LVOT Diameter 2.1 cm LV Ejection Fraction 2D Teich 62.5 % LV Ejection Fraction MOD 2C 69.6 % LV Ejection Fraction 2C AL 68.3 % LA Diameter 3.8 cm IVC Diameter 1.3 cm M-MODE Aortic Annulus Diameter 4.0 cm LA Ao Ratio MM 1.1 MV E Point Septal Separation 0.9 cm DOPPLER AV Peak Velocity 134.0 cm/s LVOT Peak Velocity 100.0 cm/s AV Area Cont Eq vti 3.0 cm squared AV Area Cont Eq pk 2.7 cm squared MV Area PHT 5.0 cm squared Mitral E to A Ratio 1.2 MV E' Velocity 47.0 cm/s Mitral E to MV E' Ratio 7.6 Mitral E to LV E' Lateral Ratio 8.4 Mitral E to LV E' Septal Ratio 7.0 TR Peak Velocity 123.0 cm/s TR Peak Gradient 6.1 mmHg TV Peak E Velocity 105.0 cm/s Right Atrial Pressure 3.0 mmHg Pulmonary Artery Systolic Pressu 9.1 mmHg RV Acceleration Time 0.1 s FINDINGS Left Ventricle Normal left ventricular size and systolic function, EF 73 %. No regional wall motion abnormalities. Mild left ventricular hypertrophy. Segmental wall motion analysis somewhat difficult because of the poor ultrasonic window Right Ventricle The right ventricle is normal in size and function. Right Atrium The right atrium is normal in size. Left Atrium The left atrium is normal in size. Mitral Valve No gross abnormalities noted Aortic Valve No gross abnormalities noted Tricuspid Valve No gross abnormalities noted.trace tricuspid valve regurgitation. Estimated pulmonary artery peak systolic pressure 9 mmHg Pulmonic Valve Pulmonic valve not well visualized. Pericardium Normal pericardium without effusion. Aorta Normal aortic annulus size. IVC Normal inferior vena cava. CONCLUSIONS Normal left ventricular size and systolic function, EF 73 %. No regional wall motion abnormalities. Mild left ventricular hypertrophy. Segmental wall motion analysis somewhat difficult because of the poor ultrasonic window. Possibly normal cardiac chamber sizes. No gross abnormalities noted.trace tricuspid valve regurgitation. Estimated pulmonary artery peak systolic pressure 9 mmHg. There is no pericardial effusion. There are no intracardiac masses. Technically difficult study because of the poor ultrasonic window. No similar previous studies are available for comparison Dr Gale Ulloa MD FACC (Electronically Signed) Final Date: 24 February 2023 06:26 S
[2023-02-23 08:00] VITALS: BP 146/75; PULSE 74; RESP 18; TEMP 36.7; O2SAT 95
--- NOTE | 2023-02-23 08:24 | PM.PN ---
Subjective Subjective: History of Present Illness Slim Andino is a 52 year old male with a history of paroxysmal atrial contractions the patient denied a history of hypertension but presented to the emergency room with blood pressure 172/118.? According to the patient, 6 days prior to admission he was at work, last on February 17, 2023.? 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 He stated that he was walking and suddenly a odd sensation came over him as though he might pass out.? He stated that he was concerned it might be his heart so he sat down and initially he was not sweating but then he stated he was sweating profusely.? Patient stated that he turned on a fan for about 2 minutes to cool off and then he walked to the office and experienced loss of consciousness for an undetermined period of time.? Patient stated that he was alone and there were no witnesses.? He stated that after regaining consciousness he was severely weak and ataxic but was able to drive himself home.? When he arrived home he called to his and she assisted him from the vehicle into the house and the patient stated that he was very sleepy and tired and went to sleep for 5 to 6 hours.? The next day the patient stated that he woke up and he still was not right and was off balance with continued difficulty processing.? Then around 1 PM on 02/22/2023 he began having more trouble with balance associated with some word finding difficulty and sensation that he might pass out.? As a result he presented to the [facility] emergency room and was transferred to ER bed 16. NIH score performed by ER physician was reported to be a very from a 3 to a 5.? Noncontrast head CT and lab were obtained.? Noncontrast head CT was reported to be negative.? Metabolic lab results were pending at the time of this dictation.? Upon neurological assessment patient is NIH score = 1 based upon patient complaining of left facial numbness in a V1 through V3 distribution and left arm numbness.? Other was unrevealing.? Patient speech was clear and no focal weakness or extinction on double sensory stimulation. Past medical history: Paroxysmal atrial contractions Nicotine dependence Drug allergies: None Current medications: None Habits: The patient smokes 1 pack/day.? 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 Reports: 10 or mor e systems reviewed and unremarkable except in HPI and below Vitals/I&O/Wt Last Vital Signs Temp 98.6 F 02/23/23 04:52 Pulse 75 02/23/23 04:52 Resp 18 02/23/23 04:52 BP 140/80 02/23/23 04:52 Pulse Ox 97 02/23/23 04:52 O2 Del Method Room Air 02/23/23 00:00 02/22/23 02/23/23 02/23/23 22:59 06:59 14:59 Intake Total 120 / 120 611.25 / 611.25 Balance 120 / 120 611.25 / 611.25 Weight last 48 hrs Weight 200 lb 6.4 oz Physical Exam Const: OTHER: NIH score =0 The patient is alert and in no apparent distress.? Head atraumatic.? The patient did have a red area over the left forehead/hairline which she reports is chronic.? Neck supple.? Cranial nerves II through XII intact.? Pupils 4 mm.? Pupils equal round and reactive to light and accommodation.? Extraocular movements intact.? Visual carlos full via confrontation.? There were no nystagmus.? Motor testing 5/5 bilaterally.? There was no drift.? Deep tendon reflexes 2+ bilaterally.? Plantar responses flexor bilaterally.? There was no clonus.? Sensory examination was intact to gross modalities.? Patient reported decrease sensation over the left face in a V1 to V3 distribution and left upper extremity.? There was no extinction on double sensory stimulation.? Throat clear.? Lungs clear.? Heart regular rhythm and rate.? Extremities were negative for clubbing cyanosis or edema.? Pulses 2-3+ in the upper and lower extremities. Data 02/23/23 04:28 02/23/23 04:28 A&P Assessment and plan (1) Syncope: Impression: 1.? Syncopal episode while ambulating on 02/17/2023 preceded by the patient becoming very hot and sweaty 2.? Ataxia, processing difficulty and body numbness since 02/17/2023 exacerbated on 02/22/2023 3.? History of paroxysmal atrial contractions 4.? Malignant elevation of blood pressure (172/118 in the emergency department room #16) 5.? Cigarette use (nicotine dependence) Plan: 1.? Follow-up hypercoagulable lab to assess for a hypercoagulable state 3.? Recommend obtaining 2D echocardiogram to rule out embolic source for the patient's symptoms 4.? Continue aspirin 325 mg p.o. every morning with food 5.? Continue lipid-lowering agent such as Lipitor at 40 to 80 mg p.o. daily 6. Have patient follow-up with family physician for hypertension and instruct patient to get a home blood pressure monitor to monitor his blood pressure 2-3 times a day and report to his family physician for any blood pressure elevation (i.e. systolic blood pressure greater than 140 or diastolic blood pressure greater than 90) 7.? Recommend cardiac evaluation since patient has history of paroxysmal atrial contractions and has not been evaluated by speedboat driver in years and patient reported syncopal episode preceded by profuse sweating. 8. Continue syncope precautions per state law 9. Please schedule patient for follow-up in the neurology clinic in 2 weeks 10. Please schedule patient for outpatient sleep deprived surface EEG recording for 61 minutes to assess for seizures 11. Patient stable from neurological standpoint for discharge planning (2) Ataxic gait: (3) TIA (transient ischemic attack): Attestations Medical Necessity Statement*: Patient evaluated by neurology for ataxia and left-sided numbness and syncope Coding Level of Care Code 65391 Diagnoses Syncope R55 Ataxic gait R26.0 TIA (transient ischemic attack) G45.9
[2023-02-23] MEDS: aspirin 325 mg EC Tablet PO (08:29)
[2023-02-23] MEDS: amlodipine 5 mg Tablet PO (08:30)
[2023-02-23] MEDS: lisinopril 10 mg Tablet PO (08:30)
--- NOTE | 2023-02-23 09:20 | PM.DCS ---
Discharge Providers Date of Admission: 02/22/23 20:09 Date of Discharge: February 23, 2023 Attending Provider at Admission: Malissa Rios MD Attending Provider at Discharge: Malissa Rios MD Primary Care Provider: Wayne Villa Diagnoses at Discharge Discharge Diagnosis (1) Syncope: Status: Acute (2) Ataxic gait: Status: Acute (3) TIA (transient ischemic attack): Status: Acute Reason for Visit Reason for Visit: dizziness Hospital Course Hospital Course This excerpt is taken from the neurology consultation Slim Andino is a 52 year old male with a history of paroxysmal atrial contractions the patient denied a history of hypertension but presented to the emergency room with blood pressure 172/118.? According to the patient, 6 days prior to admission he was at work, last on February 17, 2023.? 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 He stated that he was walking and suddenly a odd sensation came over him as though he might pass out.? He stated that he was concerned it might be his heart so he sat down and initially he was not sweating but then he stated he was sweating profusely.? Patient stated that he turned on a fan for about 2 minutes to cool off and then he walked to the office and experienced loss of consciousness for an undetermined period of time.? Patient stated that he was alone and there were no witnesses.? He stated that after regaining consciousness he was severely weak and ataxic but was able to drive himself home.? When he arrived home he called to his and she assisted him from the vehicle into the house and the patient stated that he was very sleepy and tired and went to sleep for 5 to 6 hours.? The next day the patient stated that he woke up and he still was not right and was off balance with continued difficulty processing.? Then around 1 PM on 02/22/2023 he began having more trouble with balance associated with some word finding difficulty and sensation that he might pass out.? As a result he presented to the [facility] emergency room and was transferred to ER bed 16. NIH score performed by ER physician was reported to be a very from a 3 to a 5.? Noncontrast head CT and lab were obtained.? Noncontrast head CT was reported to be negative.? Metabolic lab results were pending at the time of this dictation.? Upon neurological assessment patient is NIH score = 1 Patient was not a tPA candidate, his symptoms improved with control of blood pressure, stroke work-up was unremarkable, patient is an active smoker, he has not taken any antihypertensive regimen at home, blood pressure at the time of discharge is 146/75 mmHg, added lisinopril and amlodipine, I have asked patient to maintain a blood pressure log and follow-up with PCP he has an appointment on Tuesday His rhythm remained sinus no signs of A-fib His diagnosis will be TIA related to hypertension If patient gets recurrent episode of episodic hypertension with profuse sweating he will need catecholamine surge investigation to rule out pheochromocytoma and carcinoid syndrome Physical Exam Narrative: Patient is awake and alert GCS 15 Nonfocal neuro exam Blood pressure 146/95 mmHg S1, S2 Pleasant and cooperative Abdomen soft Discharge Data Studies Completed and Pending Completed Studies During Hospitalization Category Date Time Status CT head wo con* [id number] Stat Cat Scan 02/22/23 16:58 Completed CTA head neck [CT angio headneck* [id number]] Stat Cat Scan 02/22/23 17:33 Completed Pending at discharge Category Date Time Status CA echo doppler complete Routine Exams 02/22/23 22:43 Stop Req CV. echo complete* [id number] Routine Ultrasound 02/23/23 07:10 Ordered Radiology Impressions Head CT 02/22/23 16:58 IMPRESSION: No acute intracranial abnormality. Head/Neck CTA 02/22/23 17:33 IMPRESSION: No large vessel stenosis or occlusion. IMPRESSION: No stenosis or occlusion. REFERENCES: NASCET CRITERIA. The degree of stenosis in the cervical segment of the internal carotid artery is based on NASCET criteria. Normal is no stenosis. Mild is less than 50% stenosis. Moderate is 50-69% stenosis. Severe is 70% to 99% stenosis. Total occlusion is no detectable patent lumen. Laboratory Results WBC 10.93 10^3/uL (3.29-11.43) 02/23/23 04:28 RBC 4.74 10^6/uL (3.85-5.65) 02/23/23 04:28 Hgb 13.80 g/dL (11.27-16.99) 02/23/23 04:28 Hct 43.0 % (37-53) 02/23/23 04:28 MCV 90.7 fl (82-101) 02/23/23 04:28 MCH 29.1 pg (27-33) 02/23/23 04:28 MCHC 32.1 g/dL (30-55) 02/23/23 04:28 RDW 13.1 % (12.1-15.1) 02/23/23 04:28 Plt Count 395 10^3/cmm (157-399) 02/23/23 04:28 MPV 10.3 fL (7.4-10.4) 02/23/23 04:28 Neut % (Auto) 55.5 % 02/23/23 04:28 Lymph % (Auto) 32.6 % 02/23/23 04:28 [place] % (Auto) 7.3 % 02/23/23 04:28 Eos % (Auto) 3.7 % 02/23/23 04:28 Baso % (Auto) 0.5 % 02/23/23 04:28 Neut # (Auto) 6.07 10^3/uL (1.8-7.7) 02/23/23 04:28 Lymph # (Auto) 3.6 10^3/uL (0.8-4.8) 02/23/23 04:28 [place] # (Auto) 0.8 10^3/uL (0.2-0.9) 02/23/23 04:28 Eos # (Auto) 0.4 10^3/uL (0.0-0.8) 02/23/23 04:28 Baso # (Auto) 0.1 10^3/uL (0.0-0.1) 02/23/23 04:28 Nucleated RBC % (auto) 0 % 02/23/23 04:28 Nucleated RBCs # 0.0 /100WBC 02/23/23 04:28 Sodium 142 mmol/L (136-145) 02/23/23 04:28 Potassium 4.5 mmol/L (3.5-5.1) 02/23/23 04:28 Chloride 107 mmol/L (98-107) 02/23/23 04:28 Carbon Dioxide 25 mmol/L (22-29) 02/23/23 04:28 Anion Gap 14.5 (5-19) 02/23/23 04:28 BUN 14 mg/dL (6-20) 02/23/23 04:28 Creatinine 1.1 mg/dL (0.7-1.2) 02/23/23 04:28 GFR Calculation 70.0 mL/min (90-130) L 02/23/23 04:28 Glucose 93 mg/dL (65-115) 02/23/23 04:28 POC Glucose 74 mg/dL (70-110) 02/22/23 17:40 Calculated Osmolality 294 mOsm/kg (285-295) 02/23/23 04:28 Calcium 8.4 mg/dL (8.5-10.5) L 02/23/23 04:28 Phosphorus 3.9 mg/dL (2.5-4.5) 02/23/23 04:28 Magnesium 2.5 mg/dL (1.7-2.3) H 02/23/23 04:28 Total Bilirubin 0.2 mg/dL (0.15-1.2) 02/23/23 04:28 AST 16 U/L (0-40) 02/23/23 04:28 ALT 18 U/L (0-41) 02/23/23 04:28 Alkaline Phosphatase 66 U/L (40-130) 02/23/23 04:28 Total Protein 6.5 g/dL (6.6-8.7) L 02/23/23 04:28 Albumin 3.7 g/dL (3.5-5.2) 02/23/23 04:28 Globulin 2.8 g/dL (1.3-4.6) 02/23/23 04:28 Triglycerides 264 mg/dL (0-150) H 02/23/23 04:28 Cholesterol 205 mg/dL (0-200) H 02/23/23 04:28 LDL Cholesterol, Calc 120 mg/dL (50-129) 02/23/23 04:28 HDL Cholesterol 32 mg/dL (60-100) L 02/23/23 04:28 LDL/HDL Ratio 3.75 RATIO (0.00-3.22) H 02/23/23 04:28 Cholesterol/HDL Ratio 6.41 mg/dL (1.0-5.00) H 02/23/23 04:28 Urine Color Yellow (Yellow) 02/22/23 19:04 Urine Appearance Clear (CLEAR) 02/22/23 19:04 Urine pH 7 (5-7) 02/22/23 19:04 Ur Specific [place] 1.010 (1.005-1.030) 02/22/23 19:04 Urine Protein Neg (Negative) 02/22/23 19:04 Urine Glucose (UA) Norm (Normal) 02/22/23 19:04 Urine Ketones Negative (Negative) 02/22/23 19:04 Urine Blood Neg (Negative) 02/22/23 19:04 Urine Nitrate Negative (Negative) 02/22/23 19:04 Urine Bilirubin Neg (Negative) 02/22/23 19:04 Urine Urobilinogen Norm mg/dL (Negative) 02/22/23 19:04 Ur Leukocyte Esterase Negative (Negative) 02/22/23 19:04 Coronavirus 229E (PCR) Not detected (NOT DETECT) 02/23/23 00:00 SARS-CoV-2 (PCR) Not detected (NOT DETECT) 02/23/23 00:00 Vitals Last Vital Signs Temp 98.1 F 02/23/23 08:00 Pulse 74 02/23/23 08:00 Resp 18 02/23/23 08:00 BP 146/75 02/23/23 08:00 Pulse Ox 95 02/23/23 08:00 O2 Del Method Room Air 02/23/23 08:00 Discharge Plan Discharge Patient Disposition: Home Condition: Stable Prescriptions: New aspirin 325 mg Tablet,Delayed Release (Dr/Ec) 325 mg PO DAILY Qty: 90 3RF amlodipine 5 mg Tablet 10 mg PO DAILY Qty: 60 0RF lisinopril 10 mg Tablet 10 mg PO DAILY Qty: 90 3RF metoprolol tartrate 25 mg tablet 12.5 mg PO BID Qty: 60 3RF No Action No Known Home Medications Discharge Orders: Discharge Order (Routine); Ordered 02/23/23 Ordered By: Ronda Jackson Referrals: Eduin Villa MD [Primary Care Provider] - (Keep appointment on Tuesday) Discharge Diet: Cardiac Discharge Activity: Increase activity as tolerated Patient Instructions: Opioid Safety Discharge Attestations Time Spent in Discharge Care*: greater than 30 min Quality Metrics Clinical Quality Measures [ No reported AMI, CVA or VTE this stay] Coding Level of Care Code Acute Code for Chg Fwd Diagnoses Syncope R55 Ataxic gait R26.0 TIA (transient ischemic attack) G45.9
--- NOTE | 2023-02-23 10:22 | PC.SOCIAL ---
unit aid applications provided In rounds, Marilu lee mentioned that when they ran pt's insurance card, his insurance said it was inactive. Computer Engineering Professor followed up with pt & provided pt senior financial accountant applications. Computer Engineering Professor asked him if he was interested in Medicaid, & he said no. No other needs voiced for CM.
--- NOTE | 2023-02-23 10:52 | PC.NURSE ---
This nurse wheeled patient down to ER entrance to wait for his to pick him up.
== END 2023-02-23 10:52 | disposition home or self-care (01) ==
LOC: ER 20:09 → MEDSURG 20:49
PROVIDERS: Admitting Provider Internal Medicine; Emergency Provider Family Medicine; PCP Family Medicine; Visit Provider Internal Medicine
DX: G45.9 Transient cerebral ischemic attack, unspecified (principal); R55 Syncope and collapse; R26.0 Ataxic gait; I10 Essential (primary) hypertension; F17.210 Nicotine dependence, cigarettes, uncomplicated
CPT/HCPCS: 36415; 36416; 70450; 70496; 70498; 80053; 80061; 81003; 82962; 83735; 84100; 85025; 87635; 93005; 93306; 96361; 96372; 96374; 96375; 99285; G0378; J0360; J1650; J3490; J7030; Q9967